=== PATIENT | male | born 2000 | race American Indian/Alaskan Native ===

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

== ENCOUNTER 2020-07-31 10:16 | Emergency (ER) | payer OTHER, MEDICAID ==
[2020-07-31 10:27] VITALS: BP 127/87
[2020-07-31] MEDS ORDERED: ACETAMINOPHEN 325 MG TAB PO ONE (11:04)
--- NOTE | 2020-07-31 11:07 | Emergency Department Report ---
ED Head Trauma HPI - General Chief complaint: Headache Stated complaint: HEAD INJURY Time Seen by Provider: 07/31/20 10:59 Source: patient Mode of arrival: Ambulatory Limitations: No Limitations - History of Present Illness Initial comments: This is a 19-year-old male employed at [employer] he states at around 2:25 PM yesterday a box fell and struck him on the back of the head He denies any loss of consciousness. He took an aspirin and has been resting at home. He woke up this morning complaining of headache dizziness nausea he denies any vomiting. He denies any past medical history. He is well-appearing with steady gait and is in no acute distress MD Complaint: head injury -: Sudden (07/30/2020 approximately 2:25 PM) Mechanism of Injury: work related injury Loss of Consciousness: no Place: work Radiation: none Severity scale (0 -10): 8 Quality: aching Consistency: constant Provoking factors: none known Other Injuries: none Associated Symptoms: nausea, other (Periods of dizziness off-and-on). denies: confusion, vomiting, weakness, tingling - Related Data Previous Rx's Medication Instructions Recorded Last Taken Type Acetaminophen [Tylenol Extra 500 mg PO Q8HR #20 tablet 10/31/17 Unknown Rx Strength] Ondansetron [Zofran Odt] 4 mg PO Q8HR PRN #20 tab.rapdis 10/31/17 Unknown Rx Famotidine [Pepcid] 20 mg PO BID #60 tablet 05/10/19 Unknown Rx Ibuprofen [Motrin] 800 mg PO Q8HR PRN #21 tablet 07/31/20 Unknown Rx Allergies/Adverse reactions: Allergies Allergy/AdvReac Type Severity Reaction Status Date / Time Penicillins Allergy Hives Verified 10/31/17 09:10 ED Review of Systems ROS: Stated complaint: HEAD INJURY Other details as noted in HPI Comment: All other systems reviewed and negative Constitutional: denies: chills, fever, malaise ENT: denies: ear pain, throat pain Respiratory: denies: cough, shortness of breath, wheezing Cardiovascular: denies: chest pain, palpitations, dyspnea on exertion, edema, syncope, paroxysmal nocturnal dyspnea Gastrointestinal: denies: abdominal pain, nausea, vomiting Neurological: headache, other (Dizziness). denies: numbness, confusion, abnormal gait, vertigo Psychiatric: denies: anxiety, depression ED Past Medical Hx - Past Medical History Previous Medical History?: No - Surgical History Past Surgical History?: No - Social History Smoking Status: Never Smoker Substance Use Type: None - Medications Home Medications: Home Medications Medication Instructions Recorded Confirmed Last Taken Type Acetaminophen [Tylenol Extra 500 mg PO Q8HR #20 tablet 10/31/17 Unknown Rx Strength] Ondansetron [Zofran Odt] 4 mg PO Q8HR PRN #20 tab.rapdis 10/31/17 Unknown Rx Famotidine [Pepcid] 20 mg PO BID #60 tablet 05/10/19 Unknown Rx Ibuprofen [Motrin] 800 mg PO Q8HR PRN #21 tablet 07/31/20 Unknown Rx ED Physical Exam - General Limitations: No Limitations General appearance: alert, in no apparent distress - Head Head exam: Present: atraumatic, other (No swelling no hematoma skin intact no sign of injury to the posterior scalp) - Eye Eye exam: Present: normal appearance, PERRL, EOMI - ENT ENT exam: Present: normal exam, mucous membranes moist - Neck Neck exam: Present: normal inspection, full ROM - Respiratory Respiratory exam: Present: normal lung sounds bilaterally. Absent: respiratory distress, wheezes, rales, rhonchi - Cardiovascular Cardiovascular Exam: Present: regular rate, normal heart sounds - Extremities Exam Extremities exam: Present: normal inspection, full ROM, other (Walking with steady gait) - Back Exam Back exam: Present: normal inspection, full ROM, other (Able to bend over and touch his toes) - Neurological Exam Neurological exam: Present: alert, oriented X3, CN II-XII intact, normal gait. Absent: motor sensory deficit - Psychiatric Psychiatric exam: Present: normal affect - Skin Skin exam: Present: warm, dry, intact ED Course Vital Signs 07/31/20 10:24 Temperature 98.2 F Pulse Rate 82 Respiratory 20 Rate Blood Pressure 127/87 O2 Sat by Pulse 99 Oximetry - Reevaluation(s) Reevaluation #1: 07/31/20 11:46 Nurse in to discharge patient patient refused Tylenol states that Tylenol is not going to work he needs something stronger I explained to patient that Tylenol would be the best mode of treatment in lieu of a head injury. He insists that he needs something stronger I explained that narcotic medication is not indicated at this time and the preference would be Tylenol patient insisted he needed something else I prescribed Motrin 800 as needed for headache. - Medical Decision Making 19-year-old male states that while working yesterday at [employer] a box fell on the back of his head. He denies any loss of consciousness. He states he went home took 1 dose of aspirin and has been resting. Today he reports headache that has not improved and has not taken any additional pain medicine at home. On examination no scalp swelling or signs of injury scalp intact , his pupils are equal and reactive ,extraocular movement intact his equal upper and lower muscle strength. He has negative Romberg. His gait is steady. He is moving all extremities and he is in no distress with no neurological deficit. Plan is for patient to follow-up with his primary care doctor, rest take concussion precautions which includes decreasing use of electronics and hydration - NEXUS Criteria Focal neurological deficit present: No Midline spinal tenderness present: No Altered level of consciousness: No Intoxication present: No Distracting injury present: No NEXUS results: C-Spine can be cleared clinically by these results. Imaging is not required. Critical Care Time: No Critical care attestation.: If time is entered above; I have spent that time in minutes in the direct care of this critically ill patient, excluding procedure time. ED Disposition Clinical Impression: Head injury due to trauma Qualifiers: Encounter type: initial encounter Qualified Code(s): S09.90XA - Unspecified injury of head, initial encounter Disposition: TO HOME OR SELFCARE Is pt being admited?: No Does the pt Need Aspirin: No Condition: Stable Instructions: Head Injury, Adult Additional Instructions: Rest keep yourself well-hydrated continue to take Tylenol 325 mg 1 to 2 tablets every 4-6 hours as needed for pain. Follow-up with your PCP in 3 to 5 days or return to the emergency room for any worsening symptoms Prescriptions: Ibuprofen [Motrin] 800 mg PO Q8HR PRN #21 tablet PRN Reason: Headache Referrals: PRIMARY CAREMD [Primary Care Provider] - 3-5 Days PRERNA NUNN MD [Staff Physician] - 3-5 Days Forms: Work/School Release Form(ED) Time of Disposition: 11:12
== END 2020-07-31 11:54 | disposition home or self-care (01) ==
LOC: ED 10:16
DX: S09.90XA Unspecified injury of head, initial encounter (principal); Z79.1 Long term (current) use of non-steroidal anti-inflammatories (NSAID); Z79.899 Other long term (current) drug therapy; Z88.0 Allergy status to penicillin; W19.XXXA Unspecified fall, initial encounter; Y93.89 Activity, other specified; Y92.89 Other specified places as the place of occurrence of the external cause; Y99.8 Other external cause status
CPT/HCPCS: 99282

== ENCOUNTER 2021-11-13 11:51 | Emergency (ER) | payer MEDICAID, OTHER ==
[2021-11-13 12:24] VITALS: BP 121/75
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
== END 2021-11-13 13:55 | disposition home or self-care (01) ==
LOC: ED 11:51
DX: S40.212A Abrasion of left shoulder, initial encounter (principal); S20.419A Abrasion of unspecified back wall of thorax, initial encounter; Y08.89XA Assault by other specified means, initial encounter; Y93.89 Activity, other specified; Y92.89 Other specified places as the place of occurrence of the external cause; Y99.8 Other external cause status
CPT/HCPCS: 72040; 72070; 72100; 99283